=== PATIENT | female | born 1975 ===

== ENCOUNTER 2016-10-06 06:07 | Emergency (ER) | payer SELFPAY ==
[2016-10-06 06:15] VITALS: BP 121/80; PULSE 80; RESP 14; TEMP 98.7; O2SAT 98
--- NOTE | 2016-10-06 06:25 | C.PDOC ---
History Of Present Illness 41 year old female presents to the ED with complaints of a productive cough for the past 3 days. Patient states she has slight chest discomfort and slight SOB as well. Denies fever, chills, or any other complaints at this time. Chief Complaint (Nursing): Cough, Cold, Congestion History Per: Patient History/Exam Limitations: no limitations Onset/Duration Of Symptoms: Days Current Symptoms Are (Timing): Still Present Severity: Mild Past Medical History Reviewed: Historical Data, Nursing Documentation, Vital Signs Vital Signs: Last Vital Signs Temp 98.7 F 10/06/16 06:13 Pulse 80 10/06/16 06:13 Resp 14 10/06/16 06:13 BP 121/80 10/06/16 06:13 Pulse Ox 98 10/06/16 06:36 - Medical History PMH: Gastritis, Gall Bladder Disease (gall stones) Family History: States: Unknown Family Hx - Social History Hx Alcohol Use: No Hx Substance Use: No - Immunization History Hx Influenza Vaccination: No Review Of Systems Except As Marked, All Systems Reviewed And Found Negative. Constitutional: Negative for: Fever, Chills Cardiovascular: Positive for: Chest Pain. Negative for: Palpitations Respiratory: Positive for: Cough, Shortness of Breath, Sputum Gastrointestinal: Negative for: Abdominal Pain Physical Exam - Physical Exam Appears: Non-toxic, No Acute Distress Skin: Normal Color, Warm, Dry Head: Atraumatic, Normacephalic Eye(s): bilateral: Normal Inspection Oral Mucosa: Moist Chest: Symmetrical, No Deformity Cardiovascular: Rhythm Regular, No Murmur Respiratory: No Accessory Muscle Use, No Rales, Rhonchi (+Occasional rhonchi), No Wheezing Extremity: Normal ROM, No Deformity Neurological/Psych: Oriented x3, Normal Speech, Normal Cognition ED Course And Treatment ECG: Interpreted By Me, Viewed By Me ECG Rhythm: Sinus Rhythm ECG Interpretation: Normal, No Acute Changes Interpretation Of ECG: NSR, normal tracings Rate From EC O2 Sat by Pulse Oximetry: 98 (Room air) Pulse Ox Interpretation: Normal - Radiology CXR: Interpreted by Me, Viewed By Me CXR Interpretation: Yes: Other ([id number]). No: Cardiomegaly Progress Note: CXR ordered and reviewed. Disposition - Disposition Referrals: [facility] [Outside] Disposition: HOME/ ROUTINE Disposition Time: 06:31 Condition: STABLE Prescriptions: Promethazine DM [Phenergan DM Syrup] 5 ml PO QID #120 ml Azithromycin [Zithromax] 500 mg PO DAILY #7 tablet Instructions: Upper Respiratory Infection (ED), Acute Bronchitis (ED) Forms: Gen Discharge Inst Scottish Print Language: FRENCH - POA Present On Arrival: None - Clinical Impression Clinical Impression: Bronchitis, Upper respiratory infection - Scribe Statement The provider has reviewed the documentation as recorded by the Scribe Gordon Correa. Provider Attestation: All medical record entries made by the Scribe were at my direction and personally dictated by me. I have reviewed the chart and agree that the record accurately reflects my personal performance of the history, physical exam, medical decision making, and the department course for this patient. I have also personally directed, reviewed, and agree with the discharge instructions and disposition.
--- NOTE | 2016-10-06 08:26 | RAD ---
HISTORY: cough COMPARISON: No prior. TECHNIQUE: Chest PA and lateral FINDINGS: LUNGS: A medial right lower lobe infiltrate is present PLEURA: No significant pleural effusion identified. No pneumothorax apparent. CARDIOVASCULAR: Normal. OSSEOUS STRUCTURES: No significant abnormalities. VISUALIZED UPPER ABDOMEN: Normal. OTHER FINDINGS: None. IMPRESSION: Medial right lower lobe infiltrate
--- NOTE | 2016-10-10 16:20 | CARD ---
APPROVED REPORT EKG Measurement Heart [id number] <Conclusion> Normal sinus rhythm Normal ECG
== END 2016-10-06 06:51 | disposition home or self-care (01) ==
LOC: C.ER 06:07
DX: J06.9 Acute upper respiratory infection, unspecified (principal); J40 Bronchitis, not specified as acute or chronic